=== PATIENT | female | born 1990 | race African-American/Black ===

== ENCOUNTER 2020-12-27 10:50 | Emergency (ER) | payer BC ==
[~2020-12-27] VITALS: Ht 167.6 cm; Wt 149.7 kg
[2020-12-27 11:13] LABS: BASOPHILS # (AUTO) 0.1 (0.0-0.1); BASOPHILS % 0.4 % (0.0-1.0); EOSINOPHILS # (AUTO) 0.3 (0.0-0.4); EOSINOPHILS % 2.4 % (0.0-6.0); LYMPHOCYTES # (AUTO) 3.7 (1.0-3.2); LYMPHOCYTES % 29.3 % (18.0-39.1); MEAN CORPUSCULAR HEMOGLOBIN 18.3 pg (28-32); MEAN CORPUSCULAR HGB CONC 27.6 g/dL (31-35); MEAN CORPUSCULAR VOLUME 66.2 fL (81-99); MONOCYTES # (AUTO) 1.1 (0.2-0.8); MONOCYTES % 8.4 % (4.4-11.3); NEUTROPHILS # (AUTO) 7.5 (2.1-6.9); NEUTROPHILS % 58.6 % (38.7-80.0); PLATELET COUNT 566 x10e3/uL (140-360); RED BLOOD COUNT 3.28 x10e6/uL (3.6-5.1); RED CELL DISTRIBUTION WIDTH 18.6 % (11.7-14.4)
[2020-12-27 11:22] LABS: HEMATOCRIT 21.7 % (34.2-44.1)
[2020-12-27] MEDS ORDERED: SODIUM CHLORIDE 0.9% 250ML 250 ML IV ONE (11:30)
[2020-12-27 11:43] LABS: ALBUMIN 3.4 g/dL (3.5-5.0); ALBUMIN/GLOBULIN RATIO 0.7 (0.8-2.0); ANION GAP 13.5 mmol/L (8-16); CALCIUM 8.2 mg/dL (8.4-10.2); CREATININE, SERUM 0.73 mg/dL (0.57-1.11); POTASSIUM 3.5 mmol/L (3.5-5.1)
[2020-12-28] MEDS ORDERED: SODIUM CHLORIDE 0.9% 250ML 250 ML ONE ×2 (00:26→02:23)
== END 2020-12-28 04:40 | disposition home or self-care (01) ==
LOC: ER 10:58
DX: N93.8 Other specified abnormal uterine and vaginal bleeding (principal); D64.9 Anemia, unspecified
CPT/HCPCS: 36415; 80053; 84702; 85025; 86850; 86870; 86880; 86900; 86905; 86920; 86922; 93005; 99001; 99284; J7050; P9016